=== PATIENT | female | born 1950 | race African-American/Black ===

== ENCOUNTER 2023-08-05 11:27 | Day surgery (SDC) | payer OTHER, BC ==
[2023-07-31 14:15] VITALS: BMI 33.6
[2023-08-05 13:47] VITALS: TEMP 97
[2023-08-05 13:49] VITALS: RESP 18
[2023-08-05 13:50] VITALS: BP 151/73; PULSE 68
== END 2023-08-05 14:11 | disposition home or self-care (01) ==
LOC: FASU-ENDO 11:27
PROVIDERS: ATTEND Internal Medicine Gastroenterology
PROC: 0DJD8ZZ Inspection of Lower Intestinal Tract, Via Natural or Artificial Opening Endoscopic (ICD-10-PCS; principal; 2023-08-05 13:15)
DX: Z12.11 Encounter for screening for malignant neoplasm of colon (principal); K64.1 Second degree hemorrhoids; K64.8 Other hemorrhoids; Z86.010 Personal history of colon polyps
CPT/HCPCS: 82962